=== PATIENT | male | born 1980 | race African-American/Black ===

== ENCOUNTER 2017-10-01 17:30 | Emergency (ER) | payer MEDICAID, SELFPAY ==
--- NOTE | 2017-10-01 18:23 | RAD ---
LEFT FOOT: 10/01/17 Three views. HISTORY: Trauma to the left great toe. Enthesophytes from the posterior and plantar calcaneus. Mild degenerative changes in the intertarsal joints. Tarsals, metatarsals, and phalanges appear intact. Mild degenerative changes of the first MTP joint and some mild degenerative changes at the IP joint of the great toe with subchondral cystic ch ashely. Small defect along the articular surface of the proximal phalanx of the great toe at the IP elder nt is seen. I do not confirm a fracture, however. IMPRESSION: There are degenerative changes at the first MTP joint and at the IP joint of the great toe. No defini te fracture identified. POS: [facility]
[2017-10-01] MEDS ORDERED: Ibuprofen 800 MG TAB ONE (18:41)
== END 2017-10-01 18:44 ==
LOC: MADERS 17:30
DX: S90.112A Contusion of left great toe without damage to nail, initial encounter (principal); F90.9 Attention-deficit hyperactivity disorder, unspecified type; G89.29 Other chronic pain; F31.9 Bipolar disorder, unspecified; F20.9 Schizophrenia, unspecified; W19.XXXA Unspecified fall, initial encounter